=== PATIENT | male | born 1960 | race African-American/Black ===

== ENCOUNTER 2017-06-29 22:19 | Emergency (ER) | payer OTHER ==
[2017-06-29 22:31] VITALS: BP 136/91; PULSE 75; TEMP 98.4; BMI 22.8
[2017-06-29 23:01] LABS: BASOPHIL 0.5 % (0-2.0); MCH 27.5 pg (25.7-33.7); MCHC 32.9 g/dl (32.0-35.9); MEAN CELL VOLUME 83.4 fl (80-96); MEAN PLT VOLUME 8.9 fl (7.5-11.1); NEUTROPHILS 53.6 % (42.8-82.8); PLATELET COUNT 215 K/MM3 (134-434); RDW 14.7 % (11.9-15.9); WHITE BLOOD COUNT 5.3 K/mm3 (4.0-10.0)
[2017-06-29 23:05] LABS: INR 1.07 (0.82-1.09); PROTHROMBIN TIME (PATIENT) 12.1 SEC (9.98-11.88)
[2017-06-29 23:15] LABS: ALBUMIN 3.6 g/dl (3.4-5.0); ANION GAP 10 (8-16); BILIRUBIN,TOTAL 0.8 mg/dL (0.2-1.0); CALCIUM 8.8 mg/dL (8.5-10.1); CO2 30 mmol/L (21-32); CREATININE 1.1 mg/dL (0.7-1.3); GLUCOSE,RANDOM 157 mg/dL (74-106); SGOT/AST 17 U/L (15-37); SGPT/ALT 22 U/L (12-78); TOT PROT 7.5 g/dl (6.4-8.2)
[2017-06-29 23:18] LABS: ALK PHOS 94 U/L (45-117); CPK 198 IU/L (39-308); TROPONIN I < 0.02 ng/ml (0.00-0.05)
[2017-06-29 23:36] LABS: PLATELET ESTIMATE ADEQUATE (NORMAL)
[2017-06-30] MEDS ORDERED: predniSONE 20 MG TABLET (UD) PO ONE (00:03)
[2017-06-30] MEDS ORDERED: predniSONE 20 MG TABLET (UD) ONE (00:06)
--- NOTE | 2017-06-30 00:45 | PDOC ---
History of Present Illness - General Chief Complaint: CVA/TIA Stated Complaint: EVALUATION Time Seen by Provider: 06/29/17 23:42 - History of Present Illness Initial Comments: 06/30/17 00:38 The patient is a 56 year old male with no significant past medical history who presents to the ED with one day of facial droop. The patient states he noticed the symptom when he was brushing his teeth yesterday morning when he noticed he wasnt spitting the water out normally. He also states that his left eye is twitching and is hard to close. Pt denies any weakness/numbness in his extremities. Denies slurred speech. Denies WALTON/N/V. Denies neck pain. Denies F/ C. The patient denies any focal weakness, numbness, or tingling. He denies any visual changes, headache or loss of consciousness. The patient denies any other symptoms. Past History - Past Medical History Allergies/Adverse Reactions: Allergies Allergy/AdvReac Type Severity Reaction Status Date / Time No Known Allergies Allergy Verified 06/29/17 22:28 Home Medications: Ambulatory Orders Prednisone [Prednisone 50 MG TABLETS] 50 mg PO DAILY #7 tablet 06/30/17 Other medical history: Pt denies - Suicide/Smoking/Psychosocial Hx Smoking History: Never smoked Have you smoked in the past 12 months: No Information on smoking cessation initiated: No Hx Alcohol Use: No Drug/Substance Use Hx: No Substance Use Type: None Review of Systems - Review of Systems Comments:: 06/30/17 00:39 "GENERAL/CONSTITUTIONAL: No fever or chills. No weakness. HEAD, EYES, EARS, NOSE AND THROAT: No change in vision. No ear pain or discharge. No sore throat. CARDIOVASCULAR: No chest pain or shortness of breath. RESPIRATORY: No cough, wheezing, or hemoptysis. GASTROINTESTINAL: No nausea, vomiting, diarrhea or constipation. GENITOURINARY: No dysuria, frequency, or change in urination. MUSCULOSKELETAL: No joint or muscle swelling or pain. No neck or back pain. SKIN: No rash NEUROLOGIC: Present: left facial droop, left eye twitch No headache, vertigo, or loss of consciousness. ENDOCRINE: No increased thirst. No abnormal weight change. HEMATOLOGIC/LYMPHATIC: No anemia, easy bleeding, or history of blood clots. ALLERGIC/IMMUNOLOGIC: No hives or skin allergy. " *Physical Exam - Vital Signs Last Vital Signs Temp Pulse Resp BP Pulse Ox 98.4 F 75 18 136/91 100 06/29/17 22:29 06/29/17 22:29 06/29/17 22:29 06/29/17 22:29 06/29/17 22:29 - Physical Exam Comments: 06/30/17 00:40 "GENERAL: Awake, alert, and fully oriented, in no acute distress HEAD: No signs of trauma EYES: PERRLA, EOMI, sclera anicteric, conjunctiva clear ENT: Auricles normal inspection, hearing grossly normal, nares patent, oropharynx clear without exudates. Moist mucosa NECK: Nontender, no stepoffs, Normal ROM, supple, no lymphadenopathy, JVD, or masses LUNGS: Breath sounds equal, clear to auscultation bilaterally. No wheezes, and no crackles HEART: Regular rate and rhythm, normal S1 and S2, no murmurs, rubs or gallops ABDOMEN: Soft, nontender, normoactive bowel sounds. No guarding, no rebound. No masses EXTREMITIES: Normal range of motion, no edema. No clubbing or cyanosis. No cords, erythema, or tenderness NEUROLOGICAL: L facial droop with NO SPARING of forehead, 5/5 strength and sensation in all extremities, cerebellar tests normal, normal gait, normal speech SKIN: Warm, Dry, normal turgor, no rashes or lesions noted. " ED Treatment Course - LABORATORY CBC & Chemistry Diagram: 06/29/17 22:40 06/29/17 22:40 - ADDITIONAL ORDERS Additional order review: Laboratory Results 06/29/17 06/29/17 22:40 22:40 PT with INR 12.10 H INR 1.07 Sodium 142 Potassium 3.9 Chloride 102 Carbon Dioxide 30 Anion Gap 10 BUN 13 Creatinine 1.1 Creat Clearance w eGFR > 60 Random Glucose 157 H Calcium 8.8 Total Bilirubin 0.8 AST 17 ALT 22 Alkaline Phosphatase 94 Creatine Kinase 198 Creatine Kinase Index 0.8 CK-MB (CK-2) 1.590 Troponin I < 0.02 Total Protein 7.5 Albumin 3.6 06/29/17 22:40 RBC 5.36 MCV 83.4 MCHC 32.9 RDW 14.7 MPV 8.9 Neutrophils % 53.6 Lymphocytes % 37.3 Monocytes % 6.6 Eosinophils % 2.0 Basophils % 0.5 - RADIOLOGY Radiology Studies Ordered: Category Date Time Status HEAD CT WITHOUT CONTRAST [CT] Stat CT Scan 06/29/17 22:45 Taken - Medications Given in the ED: ED Medications Discontinued Medications Generic Name Dose Route Start Last Admin Trade Name Leticia PRN Reason Stop Dose Admin Prednisone 60 mg 06/30/17 00:03 06/30/17 00:11 Deltasone - PO 06/30/17 00:04 60 mg ONCE ONE Administration Medical Decision Making - Medical Decision Making 06/30/17 00:41 56 M with L facial droop. Exam is consistent with yao's palsy. There is no sparing of forehead suggestive of central process. Pt with no cardiovascular risk factors. No other focal neuro deficits. - CT head unremarkable - Labs wnl - Steroids - F/u neurology. *DC/Admit/Observation/Transfer Diagnosis at time of Disposition: Yao's palsy - Discharge Dispostion Disposition: HOME - Referrals Referrals: Reinaldo Murphy MD [Staff Physician] - - Patient Instructions Printed Discharge Instructions: DI for Yao's Palsy Additional Instructions: Take the prednisone as prescribed for 1 week. Call the number provided to make an appointment with neurology clinic within 1 week. If you experience worsening symptoms, weakness, numbness, or any other concerning symptoms, return to the ER immediately. - Attestations Physician Attestion: 06/30/17 00:45 I, Dr. Myron Bolton MD, attest that this document has been prepared under my direction and personally reviewed by me in its entirety. I further attest, that it accurately reflects all work, treatment, procedures and medical decision -making performed by me.
== END 2017-06-30 02:53 | disposition home or self-care (01) ==
LOC: JER 22:19
DX: G51.0 Bell's palsy (principal)
CPT/HCPCS: 36415; 70450-TC; 80053; 82550; 82553; 84484; 85025; 85610; 99284-25